=== PATIENT | female | born 1930 | race Caucasian/White ===

== ENCOUNTER 2016-11-02 19:38 | Emergency (ER) | payer MEDICARE, OTHER ==
--- NOTE | ~2016-11-02 | ER ---
PATIENT'S NAME: OG HOYOS [facility] AGE: 86 Y [address] ROOM: [place] [address] LOCATION: [facility] ADMIT DATE: 11/02/2016 ER/Outpatient Report DISCHARGE DATE: 11/02/2016 FAMILY PHYSICIAN: Physician, Unknown ATTENDING PHYSICIAN: Angel Shine Time of Arrival: 1938 hours. Time of Evaluation: 1940 hours. CHIEF COMPLAINT: Injuries from fall. HISTORY OF PRESENT ILLNESS: This is an 86-year-old female, who presents to the ER, who states she just suffered a ground-level fall prior to arrival. The patient just got a new dog, it got out of her house, and she went to leslie after it down her driveway and fell forward striking her face on the cement. The patient's neighbors ended up seeing her. They went over and helped her to her feet. The patient did not lose conscious. She states she does not feel dazed. She has had no nausea or vomiting. She states she has burning sensation across her forehead. She does have sustained multiple abrasions to her knees and her face. She is not for sure when her last tetanus shot was. She has a little bit of back and neck discomfort with this. She denies any other problems at this time. ALLERGIES: SULFA. MEDICATIONS: Please see medication list in nurse's notes. PAST MEDICAL HISTORY: 1. History of breast cancer. 2. Depression. 3. Yhk-ydqdoul-slaijzphm diabetic. 4. Hypertension. PAST SURGICAL HISTORY: Lumpectomy in her left breast. She has had her wisdom teeth removed, cholecystectomy, and appendectomy. SOCIAL HISTORY: She denies any smoking or drug use. Her just on . REVIEW OF SYSTEMS: All systems reviewed and were negative with the exception of those discussed PATIENT'S NAME: OG HOYOS [facility] AGE: 86 Y [address] ROOM: [place] [address] LOCATION: [facility] ADMIT DATE: 11/02/2016 ER/Outpatient Report DISCHARGE DATE: 11/02/2016 FAMILY PHYSICIAN: Physician, Unknown ATTENDING PHYSICIAN: Angel Shine in the HPI. PHYSICAL EXAMINATION: VITAL SIGNS: Height 5 feet stated, weight 54.8 kg taken, blood pressure is 216/86, pulse 91, respirations 16, temperature 98.1 degrees tympanically, and saturations 97% on room air. Isadora Coma Score is 15. GENERAL: An alert, very anxious appearing female, in mild distress. HEENT: Head: Normocephalic. Eyes: Pupils are equal and reactive to light. Ears: TMs display good light reflexes bilaterally. Nose: She has epistaxis to both nares. Throat: No exudates or erythema. She does open and close her jaw with no difficulties. She has no tenderness over her teeth. LUNGS: Clear to auscultation bilaterally. HEART: Regular rate and rhythm. She does have a murmur noted. ABDOMEN: Soft, it is nontender. She has good bowel sounds throughout. EXTREMITIES: No clubbing or cyanosis. She does have full range of motion in all other limbs. SKIN: She has abrasions noted to her bilateral knee. She has a huge hematoma noted to the center of her forehead with abrasion over the top of that. She also has abrasion down the front top of her nose and a 1 cm laceration to the bridge of her nose. She also has a small abrasion noted to her upper lip. LABORATORY DATA AND X-RAYS: Labs, none were done. CT scan of the head was negative. CT scan of the facial bone shows bilateral nasal fracture. CT scan of the C-spine, L-spine, and thoracic spine showed degenerative changes. No acute findings. IMPRESSION: 1. Neck and back pain secondary to ground level fall. 2. Multiple facial abrasions and knee abrasions from ground level fall. 3. 1 cm laceration to the bridge of her nose. 4. Nasal fracture. ASSESSMENT AND PLAN: We did cleanse her abrasion sites with normal saline. I did cleanse the laceration site with normal saline and repaired the laceration with Dermabond skin glue, and the patient did tolerate this well. We did update the patient on her tetanus shot. I am going to send her home with some amoxicillin for her nose, and we also gave her Ultram here for her pain as well. We will dismiss the patient also home with prescription for tramadol to use as directed. She needs to sleep with her head elevated. She needs to apply ice to any sore areas and apply antibiotic ointment to the other abrasions. She needs to follow up with her primary care physician in 1 week or sooner if needed. The patient and the patient's family understand and agree with care. PATIENT'S NAME: OG HOYOS [facility] AGE: 86 Y [address] ROOM: [place], [place] [address] LOCATION: [facility] ADMIT DATE: 11/02/2016 ER/Outpatient Report DISCHARGE DATE: 11/02/2016 FAMILY PHYSICIAN: Physician, Unknown ATTENDING PHYSICIAN: Angel Shine GANGA ROBISON PA-C FOR MD KATE ARAGON/jean /[id number] d: t: 11/07/16 1216, OUTPATIENT REPORT
== END 2016-11-02 21:54 | disposition disaster alternative care site (69) ==
LOC: GACC 19:38
PROC: 09QKXZZ Repair Nasal Mucosa and Soft Tissue, External Approach (ICD-10-PCS; principal; 2016-11-02)
DX: S02.2XXA Fracture of nasal bones, initial encounter for closed fracture (principal); S01.21XA Laceration without foreign body of nose, initial encounter; S00.81XA Abrasion of other part of head, initial encounter; S80.212A Abrasion, left knee, initial encounter; S80.211A Abrasion, right knee, initial encounter; M54.2 Cervicalgia; Z88.2 Allergy status to sulfonamides; I10 Essential (primary) hypertension; E11.9 Type 2 diabetes mellitus without complications; F32.9 Major depressive disorder, single episode, unspecified; Z79.84 Long term (current) use of oral hypoglycemic drugs; Z79.899 Other long term (current) drug therapy; Z85.3 Personal history of malignant neoplasm of breast; Z90.49 Acquired absence of other specified parts of digestive tract; Z98.818 Other dental procedure status; W18.09XA Striking against other object with subsequent fall, initial encounter